=== PATIENT | male | born 1945 | race Caucasian/White ===

== ENCOUNTER 2016-12-19 05:24 | Emergency (ER) | payer OTHER ==
[~2016-12-19] VITALS: Ht 175.3 cm; Wt 103.4 kg
[~2016-12-19 05:24] MED LIST: ALLOPURINOL300 MG PO; CLOPIDOGREL75 MG PO; COQ10 IN OIL 101 SGL PO; CRESTOR20 MG PO; DIOVAN80 MG PO; FENOFIBRATE145 MG PO; GOOD SENSE ASP325 MG PO; LIALDA1.2 G1 PO; MERCAPTOPURINE50 M1 PO; NIACIN FLUSH FREE; OMEPRAZOLE40 MG PO; PRAZOSIN HCL2 MG PO; TAMSULOSIN HYD0.4 MG PO; ZETIA10 MG PO
--- NOTE | 2016-12-19 05:29 | ED CARDIAC/CP/PALPITATIONS ---
History of Present Illness General Chief Complaint: Chest Pain Stated Complaint: "I HAVE CHEST PAIN" Source: patient Exam Limitations: no limitations Vital Signs & Intake/Output Vital Signs & Intake/Output Vital Signs Date Time Temp Pulse Resp B/P Pulse O2 O2 Flow FiO2 Ox Delivery Rate 12/19 1114 97.0 85 16 111/64 93 Room Air 12/19 0612 97 Room Air 12/19 0547 95.8 49 18 174/75 97 Room Air Allergies Coded Allergies: acetaminophen (From Percocet) (U 12/19/16) amoxicillin (U 12/19/16) oxycodone (From Percocet) (U 12/19/16) Reconcile Medications Allopurinol 300 MG TAB 1 TAB PO DAILY GOUT (Reported) Aspirin 325 MG TAB 1 TAB PO DAILY HEART (Reported) CLOPIDOGREL BISULFATE (Clopidogrel) 75 MG TABLET 1 TAB PO DAILY CLOTS ( Reported) Coenzyme Q10/Vitamin E (Coq10 in Oil 100 MG-30 Iu) 1 SGL SGL 1 TAB PO DAILY VITAMIN (Reported) Ezetimibe (Zetia) 10 MG TAB 10 MG PO DAILY HR (Reported) FENOFIBRATE NANOCRYSTALLIZED (Fenofibrate) 145 MG TABLET 1 TAB PO DAILY CHOL (Reported) Furosemide 20 MG TABLET 1 TAB PO DAILY CHF (Reported) Mercaptopurine 50 MG TABLET 25 MG PO DAILY GI (Reported) Mesalamine (Lialda) 1.2 GRAM TABLET.DR 1.26 G PO BID COLLITIS (Reported) [NIACIN FLUSH FREE 50] VITAMIN (Reported) Omeprazole 40 MG CAPSULE.DR 1 CAP PO DAILY GERD (Reported) PRAZOSIN HCL (Prazosin HCl) 2 MG CAPSULE 2 MG PO BID PROSTATE (Reported) Rosuvastatin Calcium (Crestor) 20 MG TABLET 1 TAB PO DAILY CHOL (Reported) TAMSULOSIN HCL (Tamsulosin Hydrochloride) 0.4 MG CAP.ER.24H 1 CAP PO DAILY PROSTATE (Reported) Valsartan (Diovan) 80 MG TAB 1 TAB PO DAILY HTN (Reported) Triage Nurses Notes Reviewed? yes Onset: Gradual Duration: hour(s): Timing: recent history Location: central, RUQ ABDOMINAL PAIN Radiation: back Activities at Onset: none Prior Chest Pain/Card Workup: heart attack Modifying Factors: Improves With: rest. 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 He notes mild nausea, but none presently. During these symptoms, he noted lower mid chest discomfort which began around 4/ 4:30 and resolved when he arrived in the ED, at approximately 5:30am. He has no other concerns. (INNA MENDEZ,CHIDI Whitfield) Past History Travel History Traveled to [place] past 21 day No Medical History Any Pertinent Medical History? see below for history Cardiovascular: CAD, hypertension, hyperlipidemia Surgical History Surgical History: none Psychosocial History Who do you live with Spouse What is your primary language Sami Family History Hx Contributory? No (INNA MENDEZ,CHIDI Whitfield) Review of Systems Review of Systems Constitutional: Reports: no symptoms. EENTM: Reports: no symptoms. Respiratory: Reports: no symptoms. Cardiovascular: Reports: no symptoms. GI: Reports: no symptoms. Genitourinary: Reports: no symptoms. Musculoskeletal: Reports: no symptoms. Skin: Reports: no symptoms. Neurological/Psychological: Reports: no symptoms. Hematologic/Endocrine: Reports: no symptoms. Immunologic/Allergic: Reports: no symptoms. All Other Systems: Reviewed and Negative (INNA MENDEZ,CHIDI Whitfield) Physical Exam Physical Exam General Appearance: well developed/nourished, no apparent distress Head: atraumatic, normal appearance Eyes: Bilateral: normal appearance. Ears, Nose, Throat: normal pharynx, normal ENT inspection Neck: normal inspection, supple Respiratory: normal breath sounds, chest non-tender Cardiovascular: regular rate/rhythm Gastrointestinal: normal bowel sounds, soft, mild ruq tenderness to palpation, no rebound. no guarding. Extremities: normal inspection, normal capillary refill, normal range of motion Neurologic/Psych: no motor/sensory deficits, awake, alert, oriented x 3 Skin: intact, normal color, warm/dry Core Measures ACS in differential dx? No Severe Sepsis Present: No Septic Shock Present: No (CHIDI KEITH MD) Progress Differential Diagnosis: biliary colic vs ami vs other. Plan of Care: Orders Procedure Date/time Status Clear Liquid Diet 12/19 L Active TROPONIN LEVEL 12/19 0850 Complete EKG 12/19 0850 Active URINALYSIS 12/19 0647 Complete LIPASE 12/20 547 Complete AMYLASE 12/20 547 Complete LACTIC ACID 12/19 541 Complete TROPONIN LEVEL 12/20 527 Complete PARTIAL THROMBOPLASTIN TIME 12/20 527 Complete PROTHROMBIN TIME 12/20 527 Complete D-DIMER 12/20 527 Complete COMPREHENSIVE METABOLIC PANEL 12/20 527 Complete CBC WITHOUT DIFFERENTIAL 12/20 527 Complete EKG 12/19 526 Active Laboratory Tests 12/19/16 0940: Troponin I < 0.01 12/19/16 0842: Lactic Acid Cancelled 12/19/16 0822: Urine Color STRAW, Urine Clarity CLEAR, Urine pH 6.0, Ur Specific [place] 1.015, Urine Protein NEG, Urine Ketones NEG, Urine Nitrite NEG, Urine Bilirubin NEG, Urine Urobilinogen 0.2, Ur Leukocyte Esterase NEG, Ur Microscopic EXAM NOT REQUIRED, Urine Hemoglobin NEG, Urine Glucose NEG 12/19/16547: Lactic Acid 1.6 12/19/16547: Anion Gap 8, Estimated GFR 46 L, BUN/Creatinine Ratio 15.3, Glucose 122 H, Calcium 10.2, Total Bilirubin 0.7, AST 26, ALT 37, Alkaline Phosphatase 50, Troponin I 0.02, Total Protein 6.4, Albumin 3.7, Globulin 2.7, Albumin/Globulin Ratio 1.4, Amylase 71, Lipase 419 H, PT 11.3, INR 1.08, APTT 31, D-Dimer 320 H , CBC w Diff MAN DIFF ORDERED, RBC 2.77 L, MCV 110.2 H, MCH 37.5 H, RDW 17.3 H, MPV 6.2 L, Gran % 83.6 H, Lymphocytes % 7.2 L, Monocytes % 5.3, Eosinophils % 3.4, Basophils % 0.5, Absolute Granulocytes 3.8, Segmented Neutrophils 89 H, Absolute Lymphocytes 0.3 L, Lymphocytes 2 L, Monocytes 2, Absolute Monocytes 0.2, Eosinophils 6 H, Absolute Eosinophils 0.2, Absolute Basophils 0, Metamyelocytes 1, Platelet Estimate ADEQUATE, Polychromasia 1+, Poikilocytosis 1+, Ovalocytes 1+, PUBS MCHC 34.0 Diagnostic Imaging: Viewed by Me: Radiology Read, Ultrasound. Discussed w/RAD: Radiology Read, Ultrasound. CXR Impression: no acute abnormality, no infiltrates, normal size heart, normal mediastinum Initial ED EKst degree av block, no acute changes. Hand-Off Endorsed To: FELIBERTO WHALEN MD Endorsed Time: 0700 Pending: labs, ultrasound Comments: PATIENT: NEO MCKEON PRESENT AGE: 71 PATIENT ACCOUNT NO: [id number] : 43 LOCATION: ER ORDERING PHYSICIAN: CHIDI KEITH MD SERVICE DATE: 12/19/16 EXAM TYPE: RAD - XRY-PORTABLE CHEST XRAY EXAMINATION: XR PORTABLE CHEST CLINICAL INFORMATION: Chest pain COMPARISON: 08/16/2013 chest TECHNIQUE: Portable AP view of the chest was obtained. FINDINGS: Projection is slightly apical lordotic. Status post median sternotomy. Lungs are clear. No pulmonary vascular congestion. No pleural effusion or pneumothorax. IMPRESSION: No acute abnormality of the chest. DICTATED BY: SIDRA YOUNG MD DATE/TIME DICTATED:12/19/16629 SCRIPT COORDINATOR:AMPARO DATE/TIME TRANSCRIBED:12/19/16629 CONFIDENTIAL, DO NOT COPY WITHOUT APPROPRIATE AUTHORIZATION. <Electronically signed in Other Vendor System> SIGNED BY: SIDRA YOUNG MD 12/19/1634 (INNA MENDEZ,CHIDI Whitfield) Radiology Impression: PATIENT: NEO MCKEON PRESENT AGE: 71 PATIENT ACCOUNT NO: [id number] : 43 LOCATION: [facility] ORDERING PHYSICIAN: CHIDI KEITH MD SERVICE DATE: 12/19/16 EXAM TYPE: US - US-COMPLETE ABDOMEN EXAMINATION: US ABDOMEN COMPLETE CLINICAL INFORMATION: Right upper quadrant pain. COMPARISON: None available at time of dictation. TECHNIQUE: Real-time imaging of the abdominal viscera. FINDINGS: PANCREAS: The visualized pancreas demonstrates normal echogenicity. The tail is obscured by overlying bowel gas. ABDOMINAL AORTA: The visualized segment is normal in caliber. Only a small portion of the proximal aorta is visualized secondary to obscuration from overlying bowel gas. LIVER: The liver demonstrates increased echogenicity. No intrahepatic biliary duct dilatation. GALLBLADDER: The gallbladder is distended. There is an 8 mm calculus which appears to be impacted in the gallbladder neck. The gallbladder wall is heterogeneous in echotexture and thickened, measuring up to 6 mm in diameter. There is evidence of adenomyomatosis. COMMON BILE DUCT: Slightly distended, measuring up to 8 mm in diameter. RIGHT KIDNEY: No hydronephrosis. No renal calculi. The kidney measures 15.8 cm in maximum dimension. There is a 9 mm interpolar region cyst. LEFT KIDNEY: Surgically absent. SPLEEN: The spleen is enlarged, measuring up to 16.6 cm in maximal dimension. FREE FLUID: None. IMPRESSION: 1. The gallbladder is distended. There is an 8 mm calculus which appears impacted in the gallbladder neck. The gallbladder wall is heterogeneous in echotexture and thickened. This constellation of findings is highly suggestive of acute cholecystitis in the correct clinical setting. Please note, sonographic Cole's sign was negative. However, the patient received pain medication prior to this ultrasound examination. 2. The liver demonstrates increased echogenicity. This may reflect some degree of hepatic steatosis. 3. Mild splenomegaly. 4. The left kidney is surgically absent. There is compensatory enlargement of the right kidney. This critical result was discussed with Jerry Whalen MD at 8:48 AM on 12/19/2016 and it was ascertained that the content and urgency of the report was understood at the time of direct communication. DICTATED BY: JAGDISH DIETZ MD DATE/TIME DICTATED:12/19/16821 SCRIPT COORDINATOR:AMPARO DATE/TIME TRANSCRIBED:12/19/16821 CONFIDENTIAL, DO NOT COPY WITHOUT APPROPRIATE AUTHORIZATION. <Electronically signed in Other Vendor System> SIGNED BY: JAGDISH DIETZ MD 12/19/16 0851 Comments: Patient is pain-free after the IV morphine. There is no further pain in the right upper quadrant. Patient is updated on lab results as well as ultrasound and x-ray results. A surgial consult has been placed for surgical consultation given the ultrasound findings. PT has been seen and evaluated by Alba Jewell MD. Patient states that he has no pain. Patient to receive a clear liquid tray and he tolerates it without pain he will be able to be discharged with and follow-up as an outpatient. Patient had his clear liquid tray and states that he still has no pain. Patient wants to go home. (MARLEE MENDEZ,FELIBERTO Dacosta) Departure Departure Condition: Stable Departure Forms: Customer Survey General Discharge Information Comments dimer is negative (5 x age when age >50). ekg non acute.... await labs, ultrasound... pt signed out to dr. whalen at 7am. (INNA MENDEZ,CHIDI Whitfield) Departure Disposition: HOME OR SELF CARE Clinical Impression Primary Impression: Abdominal pain Secondary Impressions: Biliary colic, Chest pain Referrals: MARIAELENA MENDEZ,ALBA JORDAN MD,Enrique MOYA (PCP/Family) Additional Instructions: Follow-up with Alba Jewell MD. Return if you develop any more pain or for any concerns. (MARLEE MENDEZ,FELIBERTO Dacosta) Critical Care Note Critical Care Note Critical Care Time: non-applicable (INNA MENDEZ,CHIDI Whitfield)
[2016-12-19 06:00] LABS: ABSOLUTE BASOPHIL COUNT 0 /CUMM (0.0-0.2); ABSOLUTE EOSINOPHIL COUNT 0.2 /CUMM (0.0-0.7); ABSOLUTE GRANULOCYTE CT 3.8 /CUMM (1.4-6.5); ABSOLUTE LYMPH COUNT 0.3 /CUMM (1.2-3.4); ABSOLUTE MONOCYTE COUNT 0.2 /CUMM (0.10-0.60); BASOPHIL % 0.5 % (0.0-2.0); EOSINOPHIL % 3.4 % (0-5); GRANULOCYTE % 83.6 % (42.2-75.2); HEMATOCRIT 30.5 % (42-52); MEAN CORPUSCULAR HGB 37.5 PG (27.0-31.0); MEAN CORPUSCULAR VOLUME 110.2 FL (80.0-94.0); MEAN PLATELET VOLUME 6.2 FL (7.4-10.4); PLATELET COUNT 153 /CUMM (130-400); RBC DISTRIBUTION WIDTH 17.3 % (11.5-14.5); RED BLOOD CELL CT 2.77 /CUMM (4.70-6.10); WHITE BLOOD CELL COUNT 4.5 /CUMM (4.8-10.8)
[2016-12-19 06:06] LABS: PT 11.3 SEC (9.4-12.5); PTT 31 SEC (25-37)
[2016-12-19] MEDS ORDERED: FUROSEMIDE20 M1 PO (06:22)
--- NOTE | 2016-12-19 06:34 | RADIOLOGY REPORT ---
EXAMINATION: XR PORTABLE CHEST CLINICAL INFORMATION: Chest pain COMPARISON: 08/16/2013 chest TECHNIQUE: Portable AP view of the chest was obtained. FINDINGS: Projection is slightly apical lordotic. Status post median sternotomy. Lungs are clear. No pulmonary vascular congestion. No pleural effusion or pneumothorax. IMPRESSION: No acute abnormality of the chest.
--- NOTE | 2016-12-19 08:51 | ULTRASOUND REPORT ---
EXAMINATION: US ABDOMEN COMPLETE CLINICAL INFORMATION: Right upper quadrant pain. COMPARISON: None available at time of dictation. TECHNIQUE: Real-time imaging of the abdominal viscera. FINDINGS: PANCREAS: The visualized pancreas demonstrates normal echogenicity. The tail is obscured by overlying bowel gas. ABDOMINAL AORTA: The visualized segment is normal in caliber. Only a small portion of the proximal aorta is visualized secondary to obscuration from overlying bowel gas. LIVER: The liver demonstrates increased echogenicity. No intrahepatic biliary duct dilatation. GALLBLADDER: The gallbladder is distended. There is an 8 mm calculus which appears to be impacted in the gallbladder neck. The gallbladder wall is heterogeneous in echotexture and thickened, measuring up to 6 mm in diameter. There is evidence of adenomyomatosis. COMMON BILE DUCT: Slightly distended, measuring up to 8 mm in diameter. RIGHT KIDNEY: No hydronephrosis. No renal calculi. The kidney measures 15.8 cm in maximum dimension. There is a 9 mm interpolar region cyst. LEFT KIDNEY: Surgically absent. SPLEEN: The spleen is enlarged, measuring up to 16.6 cm in maximal dimension. FREE FLUID: None. IMPRESSION: 1. The gallbladder is distended. There is an 8 mm calculus which appears impacted in the gallbladder neck. The gallbladder wall is heterogeneous in echotexture and thickened. This constellation of findings is highly suggestive of acute cholecystitis in the correct clinical setting. Please note, sonographic Cole's sign was negative. However, the patient received pain medication prior to this ultrasound examination. 2. The liver demonstrates increased echogenicity. This may reflect some degree of hepatic steatosis. 3. Mild splenomegaly. 4. The left kidney is surgically absent. There is compensatory enlargement of the right kidney. This critical result was discussed with Jerry Bang MD at 8:48 AM on 12/19/2016 and it was ascertained that the content and urgency of the report was understood at the time of direct communication.
[2016-12-19 11:14] VITALS: BP 111/64
--- NOTE | 2016-12-28 10:04 | Cons- General Surgery ---
General Information and HPI Consulting Request Date of Consult: 12/19/16 Requested By: Dr. De Leon History of Present Illness: CC: abdominal pain HPI: 71-year-old nondiabetic ex-smoker with a history of open heart surgery and hernia repairs who presents with acute constant severe right-sided abdominal pain upper lateral doesn't radiate, starting late last night came to the ER it's much better now after IV analgesics there was some associated nausea but no vomiting no fevers no sweats, he's had episodes like this before last one a few years ago, has since tried to control it with a apple cider vinegar olive oil and lemon juice, doesn't recall consistent relationship to food especially rich fried fatty dairy. no FHx of gallbladder problems. Otherwise no changes bowel habits, weight or appetite. I've reviewed the [facility]. 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 No history of GERD, PUD, bleeding problems, issues with anesthesia. FHx neg for cancer of heart disease. Allergies/Medications Allergies: Coded Allergies: acetaminophen (From Percocet) (U 12/19/16) amoxicillin (U 12/19/16) oxycodone (From Percocet) (U 12/19/16) Home Med List: Allopurinol 300 MG TAB 1 TAB PO DAILY GOUT (Reported) Aspirin 325 MG TAB 1 TAB PO DAILY HEART (Reported) CLOPIDOGREL BISULFATE (Clopidogrel) 75 MG TABLET 1 TAB PO DAILY CLOTS ( Reported) Coenzyme Q10/Vitamin E (Coq10 in Oil 100 MG-30 Iu) 1 SGL SGL 1 TAB PO DAILY VITAMIN (Reported) Ezetimibe (Zetia) 10 MG TAB 10 MG PO DAILY HR (Reported) FENOFIBRATE NANOCRYSTALLIZED (Fenofibrate) 145 MG TABLET 1 TAB PO DAILY CHOL (Reported) Furosemide 20 MG TABLET 1 TAB PO DAILY CHF (Reported) Mercaptopurine 50 MG TABLET 25 MG PO DAILY GI (Reported) Mesalamine (Lialda) 1.2 GRAM TABLET. 1.26 G PO BID COLLITIS (Reported) [NIACIN FLUSH FREE 50] VITAMIN (Reported) Omeprazole 40 MG CAPSULE. 1 CAP PO DAILY GERD (Reported) PRAZOSIN HCL (Prazosin HCl) 2 MG CAPSULE 2 MG PO BID PROSTATE (Reported) Rosuvastatin Calcium (Crestor) 20 MG TABLET 1 TAB PO DAILY CHOL (Reported) TAMSULOSIN HCL (Tamsulosin Hydrochloride) 0.4 MG CAP.ER.24H 1 CAP PO DAILY PROSTATE (Reported) Valsartan (Diovan) 80 MG TAB 1 TAB PO DAILY HTN (Reported) Current Medications: I reviewed Current Medications Sig/Josse Start time Last Medication Dose Route Stop Time Status Admin Morphine Sulfate 0 .STK-MED ONE 12/19 0644 DC .ROUTE Morphine Sulfate 4 MG ONCE ONE 12/19 0445 DC 12/19 IV 12/19 0546 0647 Past History Medical History Neurological: NONE EENT: NONE Cardiovascular: CAD, hypertension, hyperlipidemia Respiratory: NONE Gastrointestinal: colitis, GERD Hepatic: NONE Renal: NONE Musculoskeletal: gout Psychiatric: NONE Endocrine: NONE Blood Disorders: NONE Cancer(s): NONE 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 Surgical History Pertinent Surgical History: 1 Review of Systems Review of Systems: Constitutional: No fever, sweats or weight loss ENMT: No sore throat Cardiovascular: No chest pain, palpitations or leg swelling Respiratory: No shortness of breath, cough, or sputum or dyspnea on exertion GI: No GERD or bleeding per rectum : No dysuria or hematuria Musculoskeletal: No new muscle weakness, bone or joint pain Skin / Breast: No jaundice, rashes or itching Psychiatric: No history of drug or alcohol abuse no depression or anxiety Hematologic / lymphatic system: No problems with excessive bleeding, bruising, or blood clots Exam & Diagnostic Data Vital Signs and I&O I reviewed Vital Signs Date Time Temp Pulse Resp B/P Pulse O2 O2 Flow FiO2 Ox Delivery Rate 12/19 0612 97 Room Air 12/19 0547 95.8 49 18 174/75 97 Room Air I reviewed Intake & Output 12/19 1600 12/19 0800 12/19 0000 12/18 1600 12/18 0800 12/18 0000 Intake Total Output Total Balance Patient 228 lb Weight Physical Exam: Constitutional: pleasant, no acute distress, conversant Eyes: sclera anicteric ENMT: ears and nose atraumatic, moist mucous membranes, good dentition, no lip lesions Neck: Supple, trachea is midline, no cervical or supraclavicular adenopathy and no palpable thyromegaly Cardiovascular: S1, S2, no murmurs, no peripheral edema Respiratory: clear to auscultation with normal respiratory effort and no intercostal retractions GI: abdomen soft, nontender, nondistended, no palpable hepatosplenomegaly Extremities / lymphatics: symmetrically warm, free range of motion no peripheral edema, no cervical, supraclavicular, axillary, or inguinal adenopathy Musculoskeletal: Normal gait and station, no digital cyanosis, good muscle strength and tone no atrophy, motor grossly 5 out of 5 throughout Skin: no jaundice, no rashes warm, nondiaphoretic, no areas of erythema or induration Psychiatric: mood and affect are appropriate and alert and oriented to person place and time Last 24 Hours of Labs: I reviewed Laboratory Tests 12/19 12/19 12/19 0940 0842 0822 Chemistry Lactic Acid Cancelled Troponin I Pending Urines Urine Color (YEL,AMB,STR) STRAW Urine Clarity (CLEAR) CLEAR Urine pH (5.0 - 8.0) 6.0 Ur Specific [place] (1.001 - 1.035) 1.015 Urine Protein (NEG,<30 MG/DL) NEG Urine Ketones (NEG) NEG Urine Nitrite (NEG) NEG Urine Bilirubin (NEG) NEG Urine Urobilinogen (0.1 - 1.0 EU/dl) 0.2 Ur Leukocyte Esterase (NEG) NEG Ur Microscopic EXAM NOT REQUIRED Urine Hemoglobin (NEG) NEG Urine Glucose (N MG/DL) NEG 12/19 12/19 0579 0548 Chemistry Sodium (137 - 145 mmol/L) 140 Potassium (3.5 - 5.1 mmol/L) 4.9 Chloride (98 - 107 mmol/L) 108 H Carbon Dioxide (22 - 30 mmol/L) 24 Anion Gap (5 - 16) 8 BUN (9 - 20 mg/dL) 23 H Creatinine (0.7 - 1.2 mg/dL) 1.5 H Estimated GFR (>60 ml/min) 46 L BUN/Creatinine Ratio (7 - 25 %) 15.3 Glucose (65 - 99 mg/dL) 122 H Lactic Acid (0.7 - 2.1 mmol/L) 1.6 Calcium (8.4 - 10.2 mg/dL) 10.2 Total Bilirubin (0.2 - 1.3 mg/dL) 0.7 AST (17 - 59 U/L) 26 ALT (21 - 72 U/L) 37 Alkaline Phosphatase (< 127 U/L) 50 Troponin I (<0.11 ng/ml) 0.02 Total Protein (6.3 - 8.2 g/dL) 6.4 Albumin (3.5 - 5.0 g/dL) 3.7 Globulin (1.9 - 4.2 gm/dL) 2.7 Albumin/Globulin Ratio (1.1 - 2.2 %) 1.4 Amylase (30 - 110 U/L) 71 Lipase (23 - 300 U/L) 419 H Coagulation PT (9.4 - 12.5 SEC) 11.3 INR (0.90 - 1.17) 1.08 APTT (25 - 37 SEC) 31 D-Dimer (70 - 232 ng/ml) 320 H Hematology CBC w Diff MAN DIFF ORDERED WBC (4.8 - 10.8 /CUMM) 4.5 L RBC (4.70 - 6.10 /CUMM) 2.77 L Hgb (14.0 - 18.0 G/DL) 10.4 L Hct (42 - 52 %) 30.5 L MCV (80.0 - 94.0 FL) 110.2 H MCH (27.0 - 31.0 PG) 37.5 H RDW (11.5 - 14.5 %) 17.3 H Plt Count (130 - 400 /CUMM) 153 MPV (7.4 - 10.4 FL) 6.2 L Gran % (42.2 - 75.2 %) 83.6 H Lymphocytes % (20.5 - 51.1 %) 7.2 L Monocytes % (1.7 - 9.3 %) 5.3 Eosinophils % (0 - 5 %) 3.4 Basophils % (0.0 - 2.0 %) 0.5 Absolute Granulocytes (1.4 - 6.5 /CUMM) 3.8 Segmented Neutrophils (42.2 - 75.2 %) 89 H Absolute Lymphocytes (1.2 - 3.4 /CUMM) 0.3 L Lymphocytes (20.5 - 51.1 %) 2 L Monocytes (1.7 - 9.3 %) 2 Absolute Monocytes (0.10 - 0.60 /CUMM) 0.2 Eosinophils (0 - 5.0 %) 6 H Absolute Eosinophils (0.0 - 0.7 /CUMM) 0.2 Absolute Basophils (0.0 - 0.2 /CUMM) 0 Metamyelocytes (0.0 - 1.0 %) 1 Platelet Estimate (ADEQUATE) ADEQUATE Polychromasia 1+ Poikilocytosis 1+ Ovalocytes 1+ PUBS MCHC (33.0 - 37.0 G/DL) 34.0 Assessment/Plan Assessment/Plan Studies I reviewed today's ultrasound on PACS myself gallbladder is mildly distended there are some areas of wall thickening no pericholecystic fluid, the report notes negative Cole sign. My impression is symptomatic gallstones, probably recurrent biliary colic. The story is typical. The current standard of care is removal of the gallbladder laparoscopically, preferably not emergently. Once they become symptomatic, gallstones can lead to complications such as cholecystitis, pancreatitis and cholangitis and rarely others, his story does not have hints of this and he prob not have acute cholecystitis, given the lack of pain now despite the appearance on ultrasound, but this is a clinical diagnosis and if his pain resumes he might be developing acute cholecystitis. More workup is not needed but we will get a preoperative labs including LFTs. I explained the nature and possibility of retained stones, and rarely, persistent postoperative diarrhea. I erick a diagram illustrating how the stones cause problems and how the anatomy and inflammation can make the surgery more difficult, sometimes requiring an open procedure, and rarely to repair a bile duct injury leading to significant morbidity and even mortality. This in our practice is exceedingly rare, but other more common risks were also discussed such as infection, injury to other surrounding structures such as bowel and blood vessels. We also discussed the potential risks, benefits and alternatives to the procedure and surgery in general, issues that included but were not limited to, anesthetic risks hemorrhage requiring transfusion, the risk of transfusion itself, infection, heart attack, stroke, . In his case he feels much better and prefers to defer the surgery if possible, from an emergent to elective setting, he prefers to see his transmission engineer first, he is afebrile LFTs and white blood cell count are normal I discussed with the ER physician and him and his if he remains pain free and tolerates some diet then he can pursue this outpatient plan otherwise he'll have to be admitted and we will have to get an in-house cardiology evaluation and taken to the OR. Problem List: 1. Abdominal pain 2. Biliary colic 3. Cholelithiasis Consult Acknowledgment - Thank you for your consult request.
== END 2016-12-19 11:37 ==
LOC: ERH 05:24
PROVIDERS: Pediatrics
DX: K80.50 Calculus of bile duct without cholangitis or cholecystitis without obstruction (principal); R07.89 Other chest pain
CPT/HCPCS: 81003; 93005; 93010; 96374

== ENCOUNTER → 2017-01-24 | Day surgery (SDC) | payer OTHER ==
[~2017-01-24] VITALS: Ht 175.3 cm; Wt 103.4 kg
[~2017-01-24] MED LIST changes: +FUROSEMIDE20 M1 PO
--- NOTE | 2017-01-26 16:49 | Operative Report ---
Operative/Inv Procedure Report Surgery Date: 01/24/17 Name of Procedure: Laparoscopic cholecystectomy Pre-Operative Diagnosis: Symptomatic gallstones Post-Operative Diagnosis: Same Estimated Blood Loss: scant Surgeon/Circulation Manager: MARIAELENA MENDEZ,ALBA KNOTT Anesthesia: general endotracheal tube Operative/Procedure Note Note: Patient was positioned supine. After successful induction of general anesthesia, the patient's abdomen was clipped, prepped and draped in the usual sterile fashion. Local anesthetic was injected at the top of the umbilicus and then a curved horizontal incision little over a centimeter was made there with a 15 blade and then deepened to the midline fascia which was incised vertically a little over a centimeter. Both sides were secured with 0 Vicryl stay sutures and then the thin peritoneal layer was entered, 10 mm Powell trocar inserted obliquely to the right, and the gas was turned on to 15 mm. After insufflation and repositioning to reverse Trendelenburg, 3 more dissecting 5 mm trochars were placed in the right subcostal area, first lateral, then mid-subcostal, then subxiphoid. The gallbladder fundus was grasped from the lateral port and retracted up over the edge of the liver and then we dissected out the area of the triangle of Calot while retracting the infundibulum caudally / laterally. First the cystic duct was identified, isolated at the neck, clipped 3 times, divided after the second clip and then in similar fashion the cystic artery was identified medially, dissected and divided. Then the gallbladder was from the liver bed using cautery then lowered into an Endobag and removed through the umbilical incision, but only after enlarging it these were very hard large stones. The instruments and then the trochars were removed letting the gas escape. The fascial incision was closed with first 2 interrupted on each end and then a figure 8 Vicryl then all 4 skin incisions were closed with interrupted subcuticular 4-0 Monocryl, followed by Mastisol Steri-Strips and Bandaids. Estimated blood loss was minimal, lap and sponge counts were correct, wound expectancy was clean-contaminated, IV fluids crystalloid, complications none, patient tolerated the procedure well and was returned to the recovery room in satisfactory condition.
== END ==
LOC: STS 02:30
DX: K80.10 Calculus of gallbladder with chronic cholecystitis without obstruction (principal); I10 Essential (primary) hypertension; E78.5 Hyperlipidemia, unspecified; I25.2 Old myocardial infarction; M10.9 Gout, unspecified; Z87.891 Personal history of nicotine dependence
CPT/HCPCS: 88304; C9399; J2250